=== PATIENT | female | born 1990 | race Caucasian/White ===

== ENCOUNTER 2020-05-12 01:43 | Emergency (ER) | payer MEDICAID, SELFPAY ==
[2020-05-12 01:44] VITALS: BP 139/73; PULSE 79; RESP 16; TEMP 36.9; O2SAT 100; BMI 62.2
--- NOTE | 2020-05-12 01:59 | CT_ITS ---
HISTORY: UPPER ABDOMEN PAIN THIS AM,ELEVATED WBC,PREG TEST WAS NEGATIVE TECHNIQUE: Helically acquired images were obtained of the abdomen and pelvis following the intravenous administration of 100 mL of Isovue-370 Iodinated contrast. 2D reformats. Gastrografin oral contrast was administered. A radiation dose optimization technique was used for this scan. COMPARISON: None FINDINGS: # of images incl. paperwork: 492 LUNG BASES: Clear. CT abdomen: Bones are unremarkable. The gallbladder is distended with gallbladder wall thickening. No calcified gallstones are perceived. The stomach is slightly distended with oral contrast. Liver, spleen, pancreas, and adrenal glands, are normal. The kidneys are normal. The aorta is normal. CT pelvis: No ascites is present. The appendix is normal. Series 2 image 78. The uterus and ovaries are not pathologically enlarged. The bladder is mostly decompressed. Bowel-gas pattern is normal. CT/Abdomen/Pelvis WITH Contrast IMPRESSION: Acute cholecystitis Individualized dose optimization techniques were used for this CT. at 0442 Reported and signed by: Andres Nazario MD Electronically Signed: Andres Nazario MD at 4:41 EST Tel , Service support ,
--- NOTE | 2020-05-12 02:00 | ED.DCSUM_ITS ---
History of Present Illness Chief Complaint: Abd Pain Informant: Patient Onset: Hours Context: Gradual Onset Current Severity: Moderate Maximum Severity: Moderate Narrative: Patient presents with generalized abdominal pain that she describes as aching in nature. She states she made herself throw up thinking that make her feel better but did not help. She denies diarrhea. No fever or chills. - Past Medical History (1) Anxiety and depression Status: Chronic Past Medical History - Allergies and Home Meds Allergies/Adverse Reactions: Allergies No Known Allergies Allergy (Verified 05/12/20 01:48) Smoking Status: Former smoker Review of Systems General: Denies: Chills, Fever Eyes: Denies: Visual changes - bilaterally ENT: Denies: Bilateral ear pain Cardiovascular: Denies: Chest pain Respiratory: Denies: Dyspnea, Cough Gastrointestinal: Reports: Abdominal pain, Nausea, Vomiting. Denies: Diarrhea, Constipation Genitourinary: Denies: Dysuria Musculoskeletal: Denies: Swelling, Extremity Pain Skin: Denies: Rash Hematologic: Denies: Easy bruising, Easy bleeding Allergy: Denies: Uticaria Physical Exam Vital Signs/Narrative: Vital Signs Temp Pulse Resp BP Pulse Ox 05/12/20 01:44 98.4 F 79 16 139/73 H 100 Inital Vital Signs reviewed: Yes General: Well nourished, Well developed Head: Normocephalic ENT: Moist mucous membranes Neck: Supple Cardiovascular: Regular rate, Regular rhythm Respiratory: No distress, CTA bilaterally Abdomen: Soft, Tender - Mild mid abdominal tenderness to palpation. No guarding or rebound., Hypoactive bowel sounds Extremities: Nontender Skin: Normal color Neurological: Alert, Oriented x3 Psychological: Normal affect Diagnostic/Tx/Re-eval Impressions Abdomen/Pelvis CT 05/12/20 01:59 IMPRESSION: Acute cholecystitis Individualized dose optimization techniques were used for this CT. at 0442 Reported and signed by: Andres Nazario MD Electronically Signed: Andres Nazario MD at 4:41 EST Tel , Service support , 05/12/20 01:59 Abdomen/Pelvis WITH Contrast [CT] Stat 05/12/20 04:52 US Gallbladder [Gallbladder] [US] Stat Laboratory Results 05/12/20 05/12/20 05/12/20 02:28 02:28 02:28 WBC 12.8 H RBC 4.79 Hgb 11.3 L Hct 37.6 MCV 78.5 L MCH 23.6 L MCHC 30.1 L RDW Std Deviation 40.6 RDW Coeff of Honey 14.3 Plt Count 375 MPV 8.5 Immature Gran % (Auto) 0.400 Neut % (Auto) 81.4 H Lymph % (Auto) 11.0 L [place] % (Auto) 6.2 Eos % (Auto) 0.7 Baso % (Auto) 0.3 Absolute Neuts (auto) 10.4 H Absolute Lymphs (auto) 1.41 Nucleated RBC % 0 Sodium 140 Potassium 4.0 Chloride 105 Carbon Dioxide 30.0 Anion Gap 5 BUN 15 Creatinine 0.74 Estim Creat Clear Calc 89.52 Est GFR (MDRD) Af Amer 119 Est GFR (MDRD) Non-Af 98 BUN/Creatinine Ratio 20.2 H Glucose 106 Calcium 9.0 Total Bilirubin 0.40 Direct Bilirubin 0.19 AST 25 ALT 25 Alkaline Phosphatase 115 Total Protein 8.2 Albumin 3.8 Globulin 4.4 H Lipase 64 L Serum , Qual NEGATIVE Urine Color Urine Clarity Urine pH Ur Specific [place] Urine Protein Urine Glucose (UA) Urine Ketones Urine Occult Blood Urine Nitrite Urine Bilirubin Urine Urobilinogen Ur Leukocyte Esterase Urine RBC Urine WBC Ur Squamous Epith Cells Urine Bacteria Urine Mucus 05/12/20 04:33 WBC RBC Hgb Hct MCV MCH MCHC RDW Std Deviation RDW Coeff of Honey Plt Count MPV Immature Gran % (Auto) Neut % (Auto) Lymph % (Auto) [place] % (Auto) Eos % (Auto) Baso % (Auto) Absolute Neuts (auto) Absolute Lymphs (auto) Nucleated RBC % Sodium Potassium Chloride Carbon Dioxide Anion Gap BUN Creatinine Estim Creat Clear Calc Est GFR (MDRD) Af Amer Est GFR (MDRD) Non-Af BUN/Creatinine Ratio Glucose Calcium Total Bilirubin Direct Bilirubin AST ALT Alkaline Phosphatase Total Protein Albumin Globulin Lipase Serum , Qual Urine Color Yellow Urine Clarity Clear Urine pH 6.0 Ur Specific [place] 1.015 Urine Protein Negative Urine Glucose (UA) Normal Urine Ketones Negative Urine Occult Blood Negative Urine Nitrite Negative Urine Bilirubin Negative Urine Urobilinogen 1 H Ur Leukocyte Esterase 25 H Urine RBC 0 SEEN Urine WBC 0-5 SEEN Ur Squamous Epith Cells 0-5 SEEN Urine Bacteria 0 SEEN Urine Mucus 0 SEEN - Medical Decision Making Patient was given morphine, Zofran, and Bentyl on arrival. On repeat examination she does report abdominal pain seems to be improved. White count is slightly elevated at 12.8. CT scan is read as acute cholecystitis with thickened gallbladder wall, however she does have significant motion artifact. I did go back and reexamine her abdomen following the CT read. She reports more pain in the left upper quadrant and right upper quadrant. She does not have a Mitchell sign for me on exam. I will have ultrasound come in to get a better look at this gallbladder. I did speak Dr. Andrea to let her know about the patient's current findings. Patient be signed out to oncoming physician for final disposition.
[2020-05-12] MEDS: Ondansetron 4 MG/2 ML Vial IV (02:26)
[2020-05-12] MEDS: 0.9% Normal Saline 1,000 ML 150 ML IV ×2 (02:26→06:53)
[2020-05-12] MEDS: Morphine 4 MG/ML Syringe IV (02:27)
[2020-05-12] MEDS: Dicyclomine 20 MG/2 ML Vial IM (02:28)
[2020-05-12 02:34] LABS: Absolute Lymphocyte Count 1.41 X10^3/uL (0.83-4.51); Absolute Neutrophil Count 10.4 X10^3/uL (2.0-7.7); Basophil# 0.04 X10^3/uL; Basophil% 0.3 % (0-1); Eosinophil# 0.09 X10^3/uL; Eosinophils% 0.7 % (0-5); Hematocrit 37.6 % (37-47); Hemoglobin 11.3 g/dL (12.0-15.0); Lymphocyte # 1.41 X10^3/ul (4.0); Mean Corp Hgb Conc 30.1 g/dL (32-36); Mean Corpuscular Hgb 23.6 pg (27.0-32.0); Mean Corpuscular Volume 78.5 fL (81-99); Mean Platelet Vol. 8.5 fl (6.2-12.0); Monocyte% 6.2 % (0-10); NRBC Flagged by Analyzer 0 % (0-5); Neutrophil # 10.44 X10^3/uL (2.7-7.7); Neutrophil % 81.4 % (47-70); Platelet Count 375 K/mm3 (150-450); RBC Distribution Width CV 14.3 % (11.6-14.6); RBC Distribution Width SD 40.6 fl (35.1-43.9); Red Blood Count 4.79 M/mm3 (4.2-5.4); White Blood Count 12.8 K/mm3 (4.4-11.0)
[2020-05-12 02:43] LABS: Internal QC Validated? YES +Cl - CLEAR BKGD; Pregnancy, Serum, hCG Quali. NEGATIVE Negative
[2020-05-12 02:51] LABS: AST(SGOT) 25 U/L (15-37); Alanine Aminotransfer ALT/SGPT 25 U/L (13-56); Albumin, Serum 3.8 g/dL (3.2-5.0); Alkaline Phosphatase 115 U/L (45-117); Anion Gap 5 (5-15); BUN 15 mg/dL (7-18); BUN/Creat Ratio 20.2 RATIO (10-20); Bilirubin, Direct 0.19 mg/dL (0.00-0.30); Chloride 105 mmol/L (98-107); Creatinine, Serum 0.74 mg/dL (0.55-1.02); EST Glomerular Filtration Rate 98 mL/min (>60); Est Glom Filt Rate - Afr Amer 119 mL/min (>60); Estimated Creatinine Clearance 89.52 ml/min; Globulin 4.4 g/dL (2.2-4.2); Glucose 106 mg/dL (74-106); Lipase 64 U/L (73-393); Protein, Total 8.2 g/dL (6.4-8.2); Sodium Level 140 mmol/L (136-145)
[2020-05-12 04:30] VITALS: BP 141/73; PULSE 88; RESP 18; O2SAT 98
[2020-05-12 04:39] LABS: Bacteria 0 SEEN /hpf (None Seen); Color, Urine Yellow (Yellow); Glucose, Dipstick Normal (Normal); Ketone-Dipstick Negative (Negative); Leukocyte Esterase-Dipstick 25 /ul (Negative); Mucous, Urine 0 SEEN /hpf (<or=2+); Nitrite-Dipstick Negative (Negative); Occult Blood-Urine Negative /ul (Negative); Protein-Dipstick Negative (Negative); Red Blood Cells-Urine 0 SEEN /hpf (0-5); Specific Gravity, Urine 1.015 (1.002-1.030); Urine Bilirubin Dipstick Negative (Negative); Urine Clarity Clear (Clear); Urine Urobilinogen 1 mg/dl (Normal)
[2020-05-12 04:45] LABS: Squamous Epithelial Cells - UA 0-5 SEEN /hpf (5-10); White Blood Cells 0-5 SEEN /hpf (0-5)
--- NOTE | 2020-05-12 04:52 | US_ITS ---
STUDY: ABDOMINAL ULTRASOUND - RIGHT UPPER QUADRANT REASON FOR VISIT: Female, 29 years old RUQ PAIN X 1 DAY TECHNIQUE: Ultrasound evaluation of the right upper quadrant was performed with real-time and static tierney-scale imaging. TECHNICAL QUALITY: Limited. Examination limited by bowel gas. COMPARISON: CT abdomen and pelvis same day FINDINGS: Liver: The liver measures 18.7 cm. There is increased echogenicity consistent with fatty infiltration. The bile ducts are within normal limits. There is hepatic color flow. The direction of portal flow is hepatopetal. There is no demonstrated mass lesion. Gallbladder: Normal distended gallbladder. The gallbladder wall measures 3.3 mm. There is a positive sonographic Mitchell''s sign. There is no pericholecystic fluid. There is biliary sludge dependent within the gallbladder. Common Bile Duct (C.B.D.): The common bile duct measures 6.4 mm. Pancreas: Normal size of the head, body and tail of the pancreas. There is increased echogenicity of the pancreas. There is no demonstrated pancreatic mass or cyst. Right Kidney: Normal size of the right kidney. The right kidney measures 10.9 cm. Normal renal cortex. The right cortex measures 2.4 cm. There is no demonstrated renal mass or cyst. There is no right hydronephrosis. US/Abdomen Limited IMPRESSION: Hepatomegaly with hepatic steatosis. Positive sonographic MITCHELL sign with some internal sludge. No pericholecystic fluid. Slightly echogenic pancreas Electronically Signed: Kirill Cain DO at 9:06 EST Tel , Service support ,
[2020-05-12 06:25] VITALS: BP 133/96; PULSE 85; RESP 16; O2SAT 97
[2020-05-12] MEDS: proMETHazine 25 MG/ML Syringe 12.5 MG IV (07:43)
[2020-05-12 08:36] VITALS: PULSE 77; RESP 14; O2SAT 98
[2020-05-12 10:33] VITALS: BP 135/85; PULSE 95; RESP 16; O2SAT 100
--- NOTE | 2020-05-12 11:29 | PCM.CONS.GEN ---
Reason for Consult Date of Consultation: 05/12/20 History of Present Illness: The patient is a 29 year old F presented to the ER due to mid abdominal pain starting about 10 PM last night patient rated a 10/10. Patient states previous to that she ate the texture of muffin about 30 minutes prior. Patient stated for dinner she had a burrito bowl from [employer] and did not have any issues. Patient does have a history of reflux has not taken any medications describes her symptoms as burning up her esophagus. Currently patient denies any abdominal pain. Patient has CT abdomen pelvis which question some thickening of the gallbladder wall and ultrasound of the gallbladder report stated the wall was 3.3 mm, no pericholecystic fluid, small amount of sludge, common bile duct 6.4 mm. Patient's white blood count was slightly elevated at 12, LFTs were normal. Gallbladder report also reported positive sonographic Mitchell sign however patient stated she was sleeping during the exam except when she was jabbed in that area otherwise denies any pain in the right upper quadrant. 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 Smoking Status: Former smoker - *Family History Maternal History Items: No pertinent history Review of Systems Constitutional: Denies: Anorexia, Fever Eyes: Denies: Blurred vision HEENT: Denies: Difficulty Swallowing Cardiovascular: Denies: Chest Pain Respiratory: Denies: Cough Gastrointestinal: Reports: Abdominal Pain, Nausea, Vomiting Genitourinary: Denies: Dysuria Skin: Denies: Jaundice Neurological: Denies: Balance problems Psychiatric: Denies: Depression, Suicidal Ideations Endocrine: Denies: Polyuria Hematologic/ Lymphatic: Denies: Easy Bleeding - Physical Exam Vitals/I&O's: Vital Signs Temp Pulse Resp BP Pulse Ox 98.4 F 95 16 135/85 H 100 05/12/20 01:44 05/12/20 10:33 05/12/20 10:33 05/12/20 10:33 05/12/20 10:33 Oxygen Delivery Method Room Air Weight: 340 lb 6.299 oz Body Mass Index (BMI) 62.2 Intake and Output for Last 24 Hours 05/10/20 05/11/20 05/12/20 23:59 23:59 23:59 Intake Total 1824 Balance 1824 General: Alert, Oriented x3, Cooperative, No apparent distress HEENT: Atraumatic Lungs: Normal air movement Cardiovascular: Regular rate Abdomen: Soft, Non Tender, Non-Distended, Obese Extremities: No clubbing, No cyanosis Neurological: Cranial nerves II-XII grossly intact Psych/Mental Status: Normal Affect Laboratory Results 05/12/20 02:28: WBC 12.8 H, RBC 4.79, Hgb 11.3 L, Hct 37.6, MCV 78.5 L, MCH 23.6 L, MCHC 30.1 L, RDW Std Deviation 40.6, RDW Coeff of Honey 14.3, Plt Count 375, MPV 8.5, Immature Gran % (Auto) 0.400, Neut % (Auto) 81.4 H, Lymph % (Auto) 11.0 L, [place] % (Auto) 6.2, Eos % (Auto) 0.7, Baso % (Auto) 0.3, Absolute Neuts (auto) 10.4 H, Absolute Lymphs (auto) 1.41, Nucleated RBC % 0 05/12/20 02:28: Sodium 140, Potassium 4.0, Chloride 105, Carbon Dioxide 30.0, Anion Gap 5, BUN 15, Creatinine 0.74, Estim Creat Clear Calc 89.52, Est GFR (MDRD) Af Amer 119, Est GFR (MDRD) Non-Af 98, BUN/Creatinine Ratio 20.2 H, Glucose 106, Calcium 9.0, Total Bilirubin 0.40, Direct Bilirubin 0.19, AST 25, ALT 25, Alkaline Phosphatase 115, Total Protein 8.2, Albumin 3.8, Globulin 4.4 H, Lipase 64 L 05/12/20 02:28: Serum , Qual NEGATIVE 05/12/20 04:33: Urine Color Yellow, Urine Clarity Clear, Urine pH 6.0, Ur Specific [place] 1.015, Urine Protein Negative, Urine Glucose (UA) Normal, Urine Ketones Negative, Urine Occult Blood Negative, Urine Nitrite Negative, Urine Bilirubin Negative, Urine Urobilinogen 1 H, Ur Leukocyte Esterase 25 H, Urine RBC 0 SEEN, Urine WBC 0-5 SEEN, Ur Squamous Epith Cells 0-5 SEEN, Urine Bacteria 0 SEEN, Urine Mucus 0 SEEN Current Medications Sodium Chloride () 1,000 mls @ 150 mls/hr IV .[id number] [facility] Last Infusion: 05/12/20 11:27 Dose: Infused Documented by: Assessment/Plan 29-year-old female with mid abdominal pain, nausea and vomiting 1. Did review CT scan as well as ultrasound with the patient. Patient symptoms do fit more with gastritis/reflux then gallbladder disease. Patient does have a history of reflux about 3 times a week usually with burning up her esophagus. Patient's ultrasound report did say the wall was 3.3 mm looks more like 3 mm on my read, minimal sludge not located at the neck, no Mitchell sign on my exam. Patient did get IV Protonix in the ER when I saw the patient patient had no abdominal pain and stated she was starving. Recommend patient take Protonix 40 mg p.o. daily. Patient can follow-up with me as an outpatient in 2 weeks call for an appointment. Deborah Andrea M.D. Pager: [phone] [facility] [address] [place] [address], Outpatient [facility], [address] [place] [address] Office: [phone] Inpatient E&M: 98211 Init Hosp L3
== END 2020-05-12 11:53 | disposition home or self-care (01) ==
PROVIDERS: Emergency Provider Emergency Medicine
DX: R10.84 Generalized abdominal pain (principal); K81.0 Acute cholecystitis; K21.9 Gastro-esophageal reflux disease without esophagitis; Z87.891 Personal history of nicotine dependence
CPT/HCPCS: 74177; 76705; 80048; 80076; 81001; 83690; 84703; 85025; 96361; 96365; 96367; 96372; 96374; 96375; 99285; J7030; Q9967; A4216; J2405